=== PATIENT | male | born 1965 | race Caucasian/White ===

== ENCOUNTER 2017-11-02 10:34 | Emergency (ER) | payer SELFPAY ==
[~2017-11-02] VITALS: Ht 177.8 cm; Wt 158.8 kg
[~2017-11-02 10:34] MED LIST: ACETAMINOPHEN500 MG PO; BUPR75; BUPROPION HCL200 MG PO; Cipro500 MG PO; DIBU30TO PR; GABA100; GABA300 PO; HYDACE25S PR; HYDCHL25 PO; IBUP400 PO; KETO10 PO; Mucinex600 MG PO; OMEPRAZOLE MAGN20 MG PO; PRAHYD1AE TOP; PROM25 PO; Percocet 5-3251 EACH PO; Phentermine HCl30 MG PO
[2017-11-02] MEDS ORDERED: ALBU90OI INH (11:18)
== END 2017-11-02 11:40 | disposition home or self-care (01) ==
LOC: ER 10:34
DX: J02.9 Acute pharyngitis, unspecified (principal); R19.7 Diarrhea, unspecified; Z79.899 Other long term (current) drug therapy; Z87.891 Personal history of nicotine dependence
CPT/HCPCS: 99283

== ENCOUNTER 2018-02-07 15:47 | Emergency (ER) | payer OTHER ==
[~2018-02-07] VITALS: Ht 177.8 cm; Wt 154.2 kg
[~2018-02-07 15:47] MED LIST changes: +ALBU90OI INH; +Augmentin 875-1 EACH PO
[2018-02-07 16:26] LABS: BASOPHILS ABSOLUTE AUTO 0.07 K/mm3 (0.00-0.23); BASOPHILS PERCENT AUTO 1 % (0-2); EOSINOPHILS ABSOLUTE AUTO 0.09 K/mm3 (0.00-0.68); EOSINOPHILS PERCENT AUTO 1 % (0-6); Hematocrit 48.9 % (37.0-53.0); Hemoglobin 14.5 g/dL (13.5-17.5); IMMATURE GRAN ABSOLUTE AUTO 0.02 K/mm3 (0.00-0.10); IMMATURE GRAN PERCENT AUTO 0 % (0-1); LYMPHOCYTES ABSOLUTE AUTO 1.99 K/mm3 (0.84-5.20); LYMPHOCYTES PERCENT AUTO 19 % (21-46); MONOCYTES ABSOLUTE AUTO 0.76 K/mm3 (0.16-1.47); MONOCYTES PERCENT AUTO 7 % (4-13); Mean Corpuscular HGB 23.2 pg (26.0-34.0); Mean Corpuscular HGB Conc 29.7 g/dL (31.5-36.5); Mean Corpuscular Volume 78 fL (80-100); Mean Platelet Volume 9.5 fL (9.1-12.4); NEUTROPHILS ABSOLUTE AUTO 7.36 K/mm3 (1.96-9.15); NEUTROPHILS PERCENT AUTO 72 % (41-73); Platelet Count 223 K/mm3 (150-400); RDW Coefficient Variation 18.7 % (11.7-14.2); RDW Standard Deviation 51.7 fL (35.1-46.3); Red Blood Cell Count 6.25 M/mm3 (4.30-5.90); White Blood Cell Count 10.29 K/mm3 (4.00-11.30)
[2018-02-07 16:43] LABS: Alanine Aminotransfer (ALT/SGP 28 U/L (12-78); Albumin, Blood 3.6 g/dL (3.4-5.0); Albumin/Globulin Ratio 0.9 (0.8-1.8); Alk Phos 88 U/L (50-136); Anion Gap 7 mmol/L (6-16); Aspartate Aminotrans (AST/SGOT 20 U/L (12-37); Bilirubin, Total 0.9 mg/dL (0.1-1.0); Blood Urea Nitrogen 12 mg/dL (8-24); Bun/Creatinine Ratio 12.9 (12.0-20.0); CO2, Blood 24 mmol/L (21-32); Calcium, Blood 8.7 mg/dL (8.5-10.1); Chloride, Blood 103 mmol/L (98-108); Creatinine, Blood 0.93 mg/dL (0.60-1.20); Globulin, Blood 4.1 g/dL (2.2-4.0); Glomerular Filtration Rate >60 (60-); Glucose, Blood 95 mg/dL (70-99); Potassium, Blood 3.8 mmol/L (3.5-5.5); Sodium, Blood 134 mmol/L (136-145); Total Protein, Blood 7.7 g/dL (6.4-8.2)
[2018-02-07 18:17] LABS: Source, Urine Clean Catch
[2018-02-07 18:29] LABS: Appearance, Urine Clear (Clear); Bilirubin, Urine Neg (Neg); Blood, Urine Neg (Neg); Color, Urine Yellow (P-Yellow); Glucose Qualitative, Urine Neg (Neg); Ketones, Urine 1+ (Neg); Leukocyte Esterase, Urine Neg (Neg); Nitrite, Urine Neg (Neg); Protein, Urine 3+ (Neg); Urobilinogen, Urine NORM (Normal)
[2018-02-07 19:00] LABS: Bacteria Not Seen /hpf; Mucus Light (0-Heavy); Red Blood Cells, Urine Not Seen /hpf (0-2); Squamous Epithelial Cells Few /hpf (Few)
== END 2018-02-07 19:22 | disposition home or self-care (01) ==
LOC: ER 15:47
PROVIDERS: Physician Assistant
DX: R10.31 Right lower quadrant pain (principal); I10 Essential (primary) hypertension; Z79.899 Other long term (current) drug therapy; Z87.442 Personal history of urinary calculi; Z87.891 Personal history of nicotine dependence
CPT/HCPCS: 36415; 74176; 80053; 81001; 85025; 96374; 96375; 99284-25; J1885; J3010

== ENCOUNTER 2018-04-05 16:23 | Emergency (ER) | payer OTHER, SELFPAY ==
[~2018-04-05] VITALS: Ht 177.8 cm; Wt 154.2 kg
[2018-04-05 17:02] LABS: BASOPHILS ABSOLUTE AUTO 0.07 K/mm3 (0.00-0.23); BASOPHILS PERCENT AUTO 1 % (0-2); EOSINOPHILS PERCENT AUTO 1 % (0-6); Hematocrit 46.9 % (37.0-53.0); Hemoglobin 14.1 g/dL (13.5-17.5); IMMATURE GRAN ABSOLUTE AUTO 0.03 K/mm3 (0.00-0.10); IMMATURE GRAN PERCENT AUTO 0 % (0-1); LYMPHOCYTES ABSOLUTE AUTO 1.33 K/mm3 (0.84-5.20); LYMPHOCYTES PERCENT AUTO 15 % (21-46); MONOCYTES ABSOLUTE AUTO 0.55 K/mm3 (0.16-1.47); MONOCYTES PERCENT AUTO 6 % (4-13); Mean Corpuscular HGB 22.7 pg (26.0-34.0); Mean Corpuscular HGB Conc 30.1 g/dL (31.5-36.5); Mean Corpuscular Volume 75 fL (80-100); Mean Platelet Volume 10.3 fL (9.1-12.4); NEUTROPHILS PERCENT AUTO 76 % (41-73); Platelet Count 286 K/mm3 (150-400); RDW Coefficient Variation 17.1 % (11.7-14.2); RDW Standard Deviation 42.9 fL (35.1-46.3); Red Blood Cell Count 6.22 M/mm3 (4.30-5.90); White Blood Cell Count 8.78 K/mm3 (4.00-11.30)
[2018-04-05 17:12] LABS: Alanine Aminotransfer (ALT/SGP 34 U/L (12-78); Albumin, Blood 3.6 g/dL (3.4-5.0); Albumin/Globulin Ratio 0.8 (0.8-1.8); Alk Phos 94 U/L (50-136); Anion Gap 5 mmol/L (6-16); Aspartate Aminotrans (AST/SGOT 38 U/L (12-37); Bilirubin, Total 0.8 mg/dL (0.1-1.0); Blood Urea Nitrogen 9 mg/dL (8-24); Bun/Creatinine Ratio 10.1 (12.0-20.0); CO2, Blood 28 mmol/L (21-32); Calcium, Blood 8.5 mg/dL (8.5-10.1); Chloride, Blood 101 mmol/L (98-108); Creatinine, Blood 0.89 mg/dL (0.60-1.20); Globulin, Blood 4.6 g/dL (2.2-4.0); Glomerular Filtration Rate >60 (60-); Glucose, Blood 135 mg/dL (70-99); Potassium, Blood 4.3 mmol/L (3.5-5.5); Sodium, Blood 134 mmol/L (136-145); Total Protein, Blood 8.2 g/dL (6.4-8.2); Troponin I <0.015 ng/mL (0.000-0.040)
[2018-04-05] MEDS ORDERED: LOMAIRA8 MG (18:20)
[2018-04-05] MEDS ORDERED: IRON150C (18:20)
== END 2018-04-05 18:30 | disposition home or self-care (01) ==
LOC: ER 16:23
PROVIDERS: Emergency Medicine
DX: R53.1 Weakness (principal); E66.9 Obesity, unspecified; I10 Essential (primary) hypertension; Z87.891 Personal history of nicotine dependence
CPT/HCPCS: 36415; 71046; 80053; 83880; 84484; 85025; 93005; 93010; 99284-25

== ENCOUNTER → 2018-10-22 | Outpatient (CLI) | payer SELFPAY ==
[~2018-10-22] MED LIST changes: +IRON150C; +LOMAIRA8 MG
[2018-10-22 16:24] LABS: BASOPHILS ABSOLUTE AUTO 0.07 K/mm3 (0.00-0.23); BASOPHILS PERCENT AUTO 1 % (0-2); EOSINOPHILS ABSOLUTE AUTO 0.13 K/mm3 (0.00-0.68); EOSINOPHILS PERCENT AUTO 1 % (0-6); Hematocrit 46.8 % (37.0-53.0); Hemoglobin 14.6 g/dL (13.5-17.5); IMMATURE GRAN ABSOLUTE AUTO 0.02 K/mm3 (0.00-0.10); IMMATURE GRAN PERCENT AUTO 0 % (0-1); LYMPHOCYTES ABSOLUTE AUTO 1.46 K/mm3 (0.84-5.20); LYMPHOCYTES PERCENT AUTO 15 % (21-46); MONOCYTES ABSOLUTE AUTO 0.65 K/mm3 (0.16-1.47); MONOCYTES PERCENT AUTO 7 % (4-13); Mean Corpuscular HGB Conc 31.2 g/dL (31.5-36.5); Mean Corpuscular Volume 77 fL (80-100); Mean Platelet Volume 9.7 fL (9.1-12.4); NEUTROPHILS ABSOLUTE AUTO 7.67 K/mm3 (1.96-9.15); NEUTROPHILS PERCENT AUTO 77 % (41-73); Platelet Count 225 K/mm3 (150-400); RDW Coefficient Variation 18.2 % (11.7-14.2); RDW Standard Deviation 46.5 fL (35.1-46.3); Red Blood Cell Count 6.09 M/mm3 (4.30-5.90)
[2018-10-22 16:42] LABS: Alanine Aminotransfer (ALT/SGP 24 U/L (12-78); Albumin, Blood 3.3 g/dL (3.4-5.0); Albumin/Globulin Ratio 0.8 (0.8-1.8); Alk Phos 97 U/L (40-126); Anion Gap 8 mmol/L (6-16); Aspartate Aminotrans (AST/SGOT 24 U/L (12-37); Bilirubin, Total 0.5 mg/dL (0.1-1.0); Blood Urea Nitrogen 11 mg/dL (8-24); Bun/Creatinine Ratio 10.5 (12.0-20.0); CO2, Blood 27 mmol/L (21-32); Calcium, Blood 8.8 mg/dL (8.5-10.1); Chloride, Blood 104 mmol/L (98-108); Creatinine, Blood 1.05 mg/dL (0.60-1.20); Globulin, Blood 4.1 g/dL (2.2-4.0); Glomerular Filtration Rate >60 (60-); Glucose, Blood 146 mg/dL (70-99); Sodium, Blood 139 mmol/L (136-145); Thyroid Stimulating Hormone 2.104 uIU/mL (0.360-4.800); Total Protein, Blood 7.4 g/dL (6.4-8.2)
[2018-10-22 16:44] LABS: Troponin I <0.017 ng/mL (0.000-0.040)
== END | disposition home or self-care (01) ==
LOC: LAB EV 16:18 → LAB SHORT 16:18
PROVIDERS: Physician Assistant
DX: R00.0 Tachycardia, unspecified (principal); R53.83 Other fatigue
CPT/HCPCS: 80053; 84443; 84484; 85025

== ENCOUNTER 2019-03-23 18:56 | Emergency (ER) | payer OTHER ==
[~2019-03-23] VITALS: Ht 177.8 cm; Wt 156.5 kg
[2019-03-23 20:05] LABS: BASOPHILS ABSOLUTE AUTO 0.04 K/mm3 (0.00-0.23); BASOPHILS PERCENT AUTO 1 % (0-2); EOSINOPHILS ABSOLUTE AUTO 0.11 K/mm3 (0.00-0.68); EOSINOPHILS PERCENT AUTO 2 % (0-6); Hematocrit 49.6 % (37.0-53.0); Hemoglobin 14.8 g/dL (13.5-17.5); IMMATURE GRAN ABSOLUTE AUTO 0.01 K/mm3 (0.00-0.10); IMMATURE GRAN PERCENT AUTO 0 % (0-1); LYMPHOCYTES ABSOLUTE AUTO 0.55 K/mm3 (0.84-5.20); LYMPHOCYTES PERCENT AUTO 7 % (21-46); MONOCYTES ABSOLUTE AUTO 0.88 K/mm3 (0.16-1.47); MONOCYTES PERCENT AUTO 12 % (4-13); Mean Corpuscular HGB 23.3 pg (26.0-34.0); Mean Corpuscular HGB Conc 29.8 g/dL (31.5-36.5); Mean Corpuscular Volume 78 fL (80-100); Mean Platelet Volume 9.5 fL (9.1-12.4); NEUTROPHILS ABSOLUTE AUTO 5.92 K/mm3 (1.96-9.15); NEUTROPHILS PERCENT AUTO 79 % (41-73); Platelet Count 190 K/mm3 (150-400); RDW Coefficient Variation 17.3 % (11.7-14.2); RDW Standard Deviation 46.6 fL (35.1-46.3); Red Blood Cell Count 6.35 M/mm3 (4.30-5.90); White Blood Cell Count 7.51 K/mm3 (4.00-11.30)
[2019-03-23 20:08] LABS: Influenza A Positive (NEGATIVE); Influenza B Negative (NEGATIVE)
[2019-03-23 20:36] LABS: Alanine Aminotransfer (ALT/SGP 26 U/L (12-78); Albumin, Blood 3.6 g/dL (3.4-5.0); Albumin/Globulin Ratio 0.9 (0.8-1.8); Alk Phos 87 U/L (50-136); Anion Gap 5 mmol/L (6-16); Aspartate Aminotrans (AST/SGOT 20 U/L (12-37); Bilirubin, Total 1.2 mg/dL (0.1-1.0); Blood Urea Nitrogen 15 mg/dL (8-24); Bun/Creatinine Ratio 15.9 (12.0-20.0); CO2, Blood 29 mmol/L (21-32); Calcium, Blood 8.9 mg/dL (8.5-10.1); Chloride, Blood 106 mmol/L (98-108); Creatinine, Blood 0.94 mg/dL (0.60-1.20); Glomerular Filtration Rate >60 (60-); Glucose, Blood 81 mg/dL (70-99); Potassium, Blood 3.9 mmol/L (3.5-5.5); Sodium, Blood 140 mmol/L (136-145); Total Protein, Blood 7.6 g/dL (6.4-8.2); Troponin I <0.015 ng/mL (0.000-0.040)
[2019-03-23] MEDS ORDERED: Zofran4 MG PO (21:37)
[2019-03-23] MEDS ORDERED: Tamiflu75 MG PO (21:37)
== END 2019-03-23 21:50 | disposition home or self-care (01) ==
LOC: ER 18:56
PROVIDERS: Physician Assistant
DX: J10.1 Influenza due to other identified influenza virus with other respiratory manifestations (principal); Z79.899 Other long term (current) drug therapy; Z87.891 Personal history of nicotine dependence
CPT/HCPCS: 36415; 71046; 80053; 84484; 85025; 87804; 93005; 93010; 96374; 96375; 99284-25; J1100; J1885; J2405

== ENCOUNTER 2019-04-05 03:11 | Emergency (ER) | payer OTHER ==
[~2019-04-05] VITALS: Ht 177.8 cm; Wt 154.2 kg
[~2019-04-05 03:11] MED LIST changes: +Tamiflu75 MG PO; +Zofran4 MG PO
[2019-04-05 03:41] LABS: Source, Urine Clean Catch
[2019-04-05 03:43] LABS: BASOPHILS ABSOLUTE AUTO 0.06 K/mm3 (0.00-0.23); BASOPHILS PERCENT AUTO 1 % (0-2); EOSINOPHILS ABSOLUTE AUTO 0.15 K/mm3 (0.00-0.68); EOSINOPHILS PERCENT AUTO 2 % (0-6); Hematocrit 47.5 % (37.0-53.0); Hemoglobin 14.2 g/dL (13.5-17.5); IMMATURE GRAN ABSOLUTE AUTO 0.02 K/mm3 (0.00-0.10); IMMATURE GRAN PERCENT AUTO 0 % (0-1); LYMPHOCYTES PERCENT AUTO 19 % (21-46); MONOCYTES ABSOLUTE AUTO 1.06 K/mm3 (0.16-1.47); MONOCYTES PERCENT AUTO 11 % (4-13); Mean Corpuscular HGB 23.2 pg (26.0-34.0); Mean Corpuscular HGB Conc 29.9 g/dL (31.5-36.5); Mean Corpuscular Volume 78 fL (80-100); Mean Platelet Volume 9.8 fL (9.1-12.4); NEUTROPHILS ABSOLUTE AUTO 6.56 K/mm3 (1.96-9.15); NEUTROPHILS PERCENT AUTO 68 % (41-73); Platelet Count 230 K/mm3 (150-400); RDW Coefficient Variation 17.7 % (11.7-14.2); RDW Standard Deviation 47.3 fL (35.1-46.3); Red Blood Cell Count 6.12 M/mm3 (4.30-5.90); White Blood Cell Count 9.65 K/mm3 (4.00-11.30)
[2019-04-05 03:47] LABS: Bilirubin, Urine Neg (Neg); Blood, Urine 5+ (Neg); Glucose Qualitative, Urine Neg (Neg); Ketones, Urine Neg (Neg); Leukocyte Esterase, Urine Neg (Neg); Nitrite, Urine Neg (Neg); Protein, Urine 2+ (Neg); Urobilinogen, Urine NORM (Normal)
[2019-04-05 03:52] LABS: Appearance, Urine Clear (Clear); Color, Urine Yellow (P-Yellow); Red Blood Cells, Urine 50-100 /hpf (0-2); Squamous Epithelial Cells Rare /hpf (Few); White Blood Cells, Urine Rare /hpf (0-5)
[2019-04-05 03:53] LABS: Bacteria Not Seen /hpf
[2019-04-05 04:01] LABS: Alanine Aminotransfer (ALT/SGP 29 U/L (12-78); Albumin, Blood 3.2 g/dL (3.4-5.0); Albumin/Globulin Ratio 0.8 (0.8-1.8); Alk Phos 91 U/L (50-136); Anion Gap 7 mmol/L (6-16); Aspartate Aminotrans (AST/SGOT 20 U/L (12-37); Bilirubin, Total 0.9 mg/dL (0.1-1.0); Blood Urea Nitrogen 18 mg/dL (8-24); Bun/Creatinine Ratio 18.3 (12.0-20.0); CO2, Blood 26 mmol/L (21-32); Calcium, Blood 8.7 mg/dL (8.5-10.1); Chloride, Blood 107 mmol/L (98-108); Creatinine, Blood 0.98 mg/dL (0.60-1.20); Glomerular Filtration Rate >60 (60-); Glucose, Blood 189 mg/dL (70-99); Potassium, Blood 3.9 mmol/L (3.5-5.5); Sodium, Blood 140 mmol/L (136-145); Total Protein, Blood 7.2 g/dL (6.4-8.2)
[2019-04-05] MEDS ORDERED: Zofran4 MG PO (05:47)
[2019-04-05] MEDS ORDERED: Flomax0.4 MG PO (05:47)
[2019-04-05] MEDS ORDERED: Percocet 5-3251 EACH PO (05:47)
== END 2019-04-05 06:10 | disposition home or self-care (01) ==
LOC: ER 03:11
PROVIDERS: Emergency Medicine
DX: N20.0 Calculus of kidney (principal); I10 Essential (primary) hypertension; I25.10 Atherosclerotic heart disease of native coronary artery without angina pectoris; G47.33 Obstructive sleep apnea (adult) (pediatric); Z79.899 Other long term (current) drug therapy; Z87.891 Personal history of nicotine dependence
CPT/HCPCS: 36415; 80053; 81001; 85025; 96361; 96374; 96375; 99284-25; J1170; J1885; J2405; J7030

== ENCOUNTER 2019-11-20 11:07 | Emergency (ER) | payer OTHER | END 2019-11-20 16:17 | disposition home or self-care (01) | LOC: ER 11:07 | DX: N20.0 Calculus of kidney (principal); Z79.899 Other long term (current) drug therapy; Z87.891 Personal history of nicotine dependence ==

== ENCOUNTER 2019-11-22 05:56 | Emergency (ER) | payer OTHER ==
[~2019-11-22] VITALS: Ht 177.8 cm; Wt 158.8 kg
[~2019-11-22 05:56] MED LIST changes: +CEFP200 PO; +Flomax0.4 MG PO; +IBUP800 PO; +NORCO 7.5-3251 EAC1 PO; +Norco 5-325 Ta1 EACH PO; +ONDA4ODT MM; +Robaxin-750750 MG PO
[2019-11-22 06:46] LABS: Source, Urine Voided
[2019-11-22 06:50] LABS: Bilirubin, Urine Neg (Neg); Blood, Urine 3+ (Neg); Glucose Qualitative, Urine Neg (Neg); Ketones, Urine Neg (Neg); Leukocyte Esterase, Urine Neg (Neg); Nitrite, Urine Neg (Neg); Protein, Urine 3+ (Neg); Urobilinogen, Urine NORM (Normal)
[2019-11-22 06:55] LABS: Appearance, Urine Clear (Clear); Color, Urine Yellow (P-Yellow)
[2019-11-22 06:56] LABS: Bacteria Few /hpf; Squamous Epithelial Cells Few /hpf (Few)
[2019-11-22 06:57] LABS: Mucus Light (0-Heavy)
[2019-11-22 07:25] LABS: BASOPHILS ABSOLUTE AUTO 0.06 K/mm3 (0.00-0.23); BASOPHILS PERCENT AUTO 1 % (0-2); EOSINOPHILS ABSOLUTE AUTO 0.24 K/mm3 (0.00-0.68); EOSINOPHILS PERCENT AUTO 2 % (0-6); Hematocrit 47.6 % (37.0-53.0); Hemoglobin 14.1 g/dL (13.5-17.5); IMMATURE GRAN ABSOLUTE AUTO 0.03 K/mm3 (0.00-0.10); IMMATURE GRAN PERCENT AUTO 0 % (0-1); LYMPHOCYTES ABSOLUTE AUTO 1.84 K/mm3 (0.84-5.20); LYMPHOCYTES PERCENT AUTO 18 % (21-46); MONOCYTES ABSOLUTE AUTO 0.95 K/mm3 (0.16-1.47); MONOCYTES PERCENT AUTO 9 % (4-13); Mean Corpuscular HGB 22.8 pg (26.0-34.0); Mean Corpuscular HGB Conc 29.6 g/dL (31.5-36.5); Mean Corpuscular Volume 77 fL (80-100); Mean Platelet Volume 10.1 fL (9.1-12.4); NEUTROPHILS ABSOLUTE AUTO 7.16 K/mm3 (1.96-9.15); NEUTROPHILS PERCENT AUTO 70 % (41-73); Platelet Count 223 K/mm3 (150-400); RDW Coefficient Variation 19.3 % (11.7-14.2); Red Blood Cell Count 6.18 M/mm3 (4.30-5.90); White Blood Cell Count 10.28 K/mm3 (4.00-11.30)
[2019-11-22 07:34] LABS: Anion Gap 5 mmol/L (6-16); Blood Urea Nitrogen 19 mg/dL (8-24); Bun/Creatinine Ratio 23.7 (12.0-20.0); CO2, Blood 27 mmol/L (21-32); Calcium, Blood 8.6 mg/dL (8.5-10.1); Chloride, Blood 110 mmol/L (98-108); Glomerular Filtration Rate >60 (60-); Glucose, Blood 153 mg/dL (70-99); Potassium, Blood 4.1 mmol/L (3.5-5.5); Sodium, Blood 142 mmol/L (136-145)
[2019-11-23] MEDS ORDERED: PROM25 PO (15:05)
[2019-11-23] MEDS ORDERED: Percocet 5-3251 EACH PO (15:05)
[2019-11-23] MEDS ORDERED: IBUP800 PO (15:05)
== END 2019-11-22 08:21 | disposition home or self-care (01) ==
LOC: ER 05:56
PROVIDERS: Emergency Medicine
DX: N13.2 Hydronephrosis with renal and ureteral calculous obstruction (principal); I25.10 Atherosclerotic heart disease of native coronary artery without angina pectoris; I10 Essential (primary) hypertension; E66.9 Obesity, unspecified; Z68.43 Body mass index [BMI] 50.0-59.9, adult; Z95.5 Presence of coronary angioplasty implant and graft; Z87.891 Personal history of nicotine dependence; Z79.899 Other long term (current) drug therapy
CPT/HCPCS: 36415; 74176; 80048; 81001; 85025; 96361; 96374; 96375; 99284-25; J1170; J1885; J2405; J7030

== ENCOUNTER 2019-11-23 13:23 | Emergency (ER) | payer OTHER ==
[~2019-11-23] VITALS: Ht 177.8 cm; Wt 113.4 kg
[2019-11-23 14:09] LABS: Source, Urine Voided
[2019-11-23 14:12] LABS: Bilirubin, Urine Neg (Neg); Blood, Urine 2+ (Neg); Color, Urine Yellow (P-Yellow); Glucose Qualitative, Urine Neg (Neg); Ketones, Urine Neg (Neg); Leukocyte Esterase, Urine Neg (Neg); Nitrite, Urine Neg (Neg); Protein, Urine 1+ (Neg); Urobilinogen, Urine 1+ (Normal)
[2019-11-23 14:30] LABS: BASOPHILS ABSOLUTE AUTO 0.06 K/mm3 (0.00-0.23); BASOPHILS PERCENT AUTO 1 % (0-2); EOSINOPHILS ABSOLUTE AUTO 0.19 K/mm3 (0.00-0.68); EOSINOPHILS PERCENT AUTO 2 % (0-6); Hematocrit 45.2 % (37.0-53.0); Hemoglobin 13.4 g/dL (13.5-17.5); IMMATURE GRAN ABSOLUTE AUTO 0.02 K/mm3 (0.00-0.10); IMMATURE GRAN PERCENT AUTO 0 % (0-1); LYMPHOCYTES ABSOLUTE AUTO 1.28 K/mm3 (0.84-5.20); LYMPHOCYTES PERCENT AUTO 12 % (21-46); MONOCYTES ABSOLUTE AUTO 0.82 K/mm3 (0.16-1.47); MONOCYTES PERCENT AUTO 7 % (4-13); Mean Corpuscular HGB 22.9 pg (26.0-34.0); Mean Corpuscular HGB Conc 29.6 g/dL (31.5-36.5); Mean Corpuscular Volume 77 fL (80-100); Mean Platelet Volume 10.2 fL (9.1-12.4); NEUTROPHILS ABSOLUTE AUTO 8.64 K/mm3 (1.96-9.15); NEUTROPHILS PERCENT AUTO 79 % (41-73); Platelet Count 225 K/mm3 (150-400); RDW Coefficient Variation 18.7 % (11.7-14.2); RDW Standard Deviation 50.3 fL (35.1-46.3); Red Blood Cell Count 5.84 M/mm3 (4.30-5.90); White Blood Cell Count 11.01 K/mm3 (4.00-11.30)
[2019-11-23 14:31] LABS: Alanine Aminotransfer (ALT/SGP 28 U/L (12-78); Albumin, Blood 3.2 g/dL (3.4-5.0); Albumin/Globulin Ratio 0.8 (0.8-1.8); Alk Phos 77 U/L (50-136); Anion Gap 5 mmol/L (6-16); Aspartate Aminotrans (AST/SGOT 19 U/L (12-37); Bilirubin, Total 0.7 mg/dL (0.1-1.0); Blood Urea Nitrogen 15 mg/dL (8-24); Bun/Creatinine Ratio 15.3 (12.0-20.0); CO2, Blood 28 mmol/L (21-32); Calcium, Blood 8.9 mg/dL (8.5-10.1); Chloride, Blood 109 mmol/L (98-108); Creatinine, Blood 0.98 mg/dL (0.60-1.20); Globulin, Blood 3.9 g/dL (2.2-4.0); Glomerular Filtration Rate >60 (60-); Glucose, Blood 124 mg/dL (70-99); Potassium, Blood 4.1 mmol/L (3.5-5.5); Sodium, Blood 142 mmol/L (136-145); Total Protein, Blood 7.1 g/dL (6.4-8.2)
[2019-11-23 14:33] LABS: Appearance, Urine Hazy (Clear)
[2019-11-23 14:35] LABS: Bacteria Few /hpf; Squamous Epithelial Cells Mod /hpf (Few)
[2019-11-23] MEDS ORDERED: PROM25 PO (15:05)
[2019-11-23] MEDS ORDERED: IBUP800 PO (15:05)
[2019-11-23] MEDS ORDERED: Percocet 5-3251 EACH PO (15:05)
== END 2019-11-23 15:13 | disposition home or self-care (01) ==
LOC: ER 13:23
PROVIDERS: Emergency Medicine
DX: N20.0 Calculus of kidney (principal); I10 Essential (primary) hypertension; E66.9 Obesity, unspecified; Z79.899 Other long term (current) drug therapy; Z87.891 Personal history of nicotine dependence
CPT/HCPCS: 36415; 80053; 81001; 85025; 96374; 96375; 99284-25; J1170; J1885; J2550

== ENCOUNTER 2019-12-17 06:02 | Emergency (ER) | payer OTHER ==
[~2019-12-17] VITALS: Ht 180.3 cm; Wt 158.3 kg
[2019-12-17 06:15] LABS: Source, Urine Clean Catch
[2019-12-17 06:17] LABS: Appearance, Urine Clear (Clear); Bilirubin, Urine Neg (Neg); Blood, Urine 1+ (Neg); Color, Urine Yellow (P-Yellow); Glucose Qualitative, Urine Neg (Neg); Ketones, Urine Neg (Neg); Leukocyte Esterase, Urine Neg (Neg); Nitrite, Urine Neg (Neg); Protein, Urine 3+ (Neg); Urobilinogen, Urine NORM (Normal)
[2019-12-17] MEDS ORDERED: GABA300 PO (06:18)
[2019-12-17] MEDS ORDERED: AMPDEX5 PO (06:19)
[2019-12-17 06:27] LABS: Bacteria Few /hpf; Squamous Epithelial Cells Few /hpf (Few); White Blood Cells, Urine 0-2 /hpf (0-5)
[2019-12-17] MEDS ORDERED: PROM25 PO (11:42)
[2019-12-17] MEDS ORDERED: OXYC5 PO (11:42)
[2019-12-17] MEDS ORDERED: TAMS.4ER PO (11:42)
== END 2019-12-17 12:21 | disposition home or self-care (01) ==
LOC: ER 06:02
PROVIDERS: Emergency Medicine
DX: N20.1 Calculus of ureter (principal); Z87.442 Personal history of urinary calculi; Z87.891 Personal history of nicotine dependence; Z20.828 Contact with and (suspected) exposure to other viral communicable diseases; Z79.899 Other long term (current) drug therapy
CPT/HCPCS: 36415; 72192; 74018; 76770; 81001; 96374; 96375; 99284-25; J1170; J1885; J2405; U0004

== ENCOUNTER 2020-01-01 10:30 | Emergency (ER) | payer OTHER ==
[~2020-01-01] VITALS: Ht 177.8 cm; Wt 163.3 kg
[~2020-01-01 10:30] MED LIST changes: +AMPDEX5 PO; +OXYC5 PO; +TAMS.4ER PO
[2020-01-01] MEDS ORDERED: Norco 5-325 Ta1 EACH PO (14:03)
[2020-01-01] MEDS ORDERED: CYCL10 PO (14:03)
== END 2020-01-01 14:17 | disposition home or self-care (01) ==
LOC: ER 10:30
DX: M54.2 Cervicalgia (principal); M54.5 Low back pain; M25.531 Pain in right wrist; I10 Essential (primary) hypertension; I25.10 Atherosclerotic heart disease of native coronary artery without angina pectoris; E66.9 Obesity, unspecified; Z87.891 Personal history of nicotine dependence; Z87.442 Personal history of urinary calculi; Z79.899 Other long term (current) drug therapy; V43.92XA Unspecified car occupant injured in collision with other type car in traffic accident, initial encounter; Y92.410 Unspecified street and highway as the place of occurrence of the external cause
CPT/HCPCS: 72070; 72125; 73110; 99284-25; A9270-GY

== ENCOUNTER 2020-01-08 07:12 | Emergency (ER) | payer OTHER ==
[~2020-01-08] VITALS: Ht 177.8 cm; Wt 158.3 kg
[~2020-01-08 07:12] MED LIST changes: +CYCL10 PO
[2020-01-08] MEDS ORDERED: TIZA4 PO (08:42)
[2020-01-08] MEDS ORDERED: Percocet 5-3251 EACH PO (08:42)
== END 2020-01-08 08:47 | disposition home or self-care (01) ==
LOC: ER 07:12
DX: M54.5 Low back pain (principal); I25.10 Atherosclerotic heart disease of native coronary artery without angina pectoris; I10 Essential (primary) hypertension; E66.9 Obesity, unspecified; Z79.899 Other long term (current) drug therapy; Z87.442 Personal history of urinary calculi; Z87.891 Personal history of nicotine dependence; Z95.5 Presence of coronary angioplasty implant and graft; V89.2XXA Person injured in unspecified motor-vehicle accident, traffic, initial encounter; Y92.410 Unspecified street and highway as the place of occurrence of the external cause
CPT/HCPCS: 99283; A9270

== ENCOUNTER 2020-02-02 16:29 | Emergency (ER) | payer OTHER ==
[~2020-02-02] VITALS: Ht 177.8 cm; Wt 109.8 kg
[~2020-02-02 16:29] MED LIST changes: +TIZA4 PO
[2020-02-02] MEDS ORDERED: GLYDO11 ML TOP (19:12)
[2020-02-02] MEDS ORDERED: COLACE100 MG PO (19:12)
[2020-02-02] MEDS ORDERED: HYDCOR2.5C PR (19:12)
== END 2020-02-02 19:50 | disposition home or self-care (01) ==
LOC: ER 16:29
DX: K64.4 Residual hemorrhoidal skin tags (principal); Z79.899 Other long term (current) drug therapy
CPT/HCPCS: 74018; 99283-25

== ENCOUNTER 2021-08-08 08:45 | Emergency (ER) | payer OTHER ==
[~2021-08-08] VITALS: Ht 180.3 cm; Wt 158.8 kg
[~2021-08-08 08:45] MED LIST changes: +COLACE100 MG PO; +FERSU300 PO; +FINA5 PO; +GLYDO11 ML TOP; +HYDACE10B PO; +HYDCOR2.5C PR; +HYDR25SUP PR; +ONDA4 PO; +TAMSULOSIN HCL0.4 M1 PO
[2021-08-08] MEDS ORDERED: FINA5 PO (10:50)
[2021-08-08] MEDS ORDERED: GABA300 PO (10:51)
[2021-08-08] MEDS ORDERED: NEURONTIN300 MG PO (10:51)
[2021-08-08] MEDS ORDERED: ZESTRIL40 M1 PO (10:53)
[2021-08-08] MEDS ORDERED: Voltaren100 GM TOP (11:46)
[2021-08-08] MEDS ORDERED: Norco 5-325 Ta1 EACH PO (11:46)
== END 2021-08-08 11:59 | disposition home or self-care (01) ==
LOC: ER 08:45
DX: M25.562 Pain in left knee (principal); I10 Essential (primary) hypertension; I25.10 Atherosclerotic heart disease of native coronary artery without angina pectoris; E66.9 Obesity, unspecified; Z68.42 Body mass index [BMI] 45.0-49.9, adult; Z79.899 Other long term (current) drug therapy; Z87.891 Personal history of nicotine dependence
CPT/HCPCS: 73564; A9270; J1885

== ENCOUNTER 2021-08-18 15:30 | Emergency (ER) | payer OTHER ==
[~2021-08-18] VITALS: Ht 177.8 cm; Wt 113.4 kg
[~2021-08-18 15:30] MED LIST changes: +NEURONTIN300 MG PO; +Voltaren100 GM TOP; +ZESTRIL40 M1 PO
[2021-08-18] MEDS ORDERED: Naprosyn500 MG PO (16:34)
== END 2021-08-18 16:46 | disposition home or self-care (01) ==
LOC: ER 15:30
DX: S83.92XA Sprain of unspecified site of left knee, initial encounter (principal); I10 Essential (primary) hypertension; G47.33 Obstructive sleep apnea (adult) (pediatric); Z87.891 Personal history of nicotine dependence; Z79.899 Other long term (current) drug therapy; Z95.5 Presence of coronary angioplasty implant and graft; X58.XXXA Exposure to other specified factors, initial encounter; Y92.9 Unspecified place or not applicable
CPT/HCPCS: 96372; 99283-25; J1885

== ENCOUNTER 2021-10-25 07:37 | Day surgery (SDC) | payer OTHER ==
[~2021-10-25] VITALS: Ht 177.8 cm; Wt 148.3 kg
[~2021-10-25 07:37] MED LIST changes: +Naprosyn500 MG PO
[2021-10-25] MEDS ORDERED: MELO7.5 (08:18)
[2021-10-25] MEDS ORDERED: AMLO5 PO (08:18)
[2021-10-25] MEDS ORDERED: ATOR40TA PO (08:18)
[2021-10-25] MEDS ORDERED: Adipex-P37.5 MG PO (08:19)
[2021-10-25] MEDS ORDERED: METF500 PO (08:19)
[2021-10-25] MEDS ORDERED: TIZA4 PO (08:19)
[2021-10-25] MEDS ORDERED: TAMS.4ER PO (08:19)
--- NOTE | 2021-10-25 08:45 | NUR ---
10/25/21 0845 Rodrigo Cole CALL LIGHT WITHIN REACH.
--- NOTE | 2021-10-25 09:20 | NUR ---
10/25/21 09 Tawnya Lidn 1 MG EPI ADDED TO EACH OF THE FIRST 3 BAGS OF LR PER ORDER FOR IRRIGATION AT [facility].
--- NOTE | 2021-10-25 10:19 | NUR ---
10/25/21 1019 ELZBIETA SARABIA RN BRODIE HANDOFF TO JADON WILL , 50MCG FENTANYL MEDICATION HANDOFF TO JADON WILL
== END 2021-10-25 11:37 | disposition home or self-care (01) ==
LOC: ORSCSDS 07:37
PROVIDERS: Orthopaedic Surgery
PROC: 0SBD4ZZ Excision of Left Knee Joint, Percutaneous Endoscopic Approach (ICD-10-PCS; principal; 2021-10-25 08:45)
DX: S83.242A Other tear of medial meniscus, current injury, left knee, initial encounter (principal); M65.9 Synovitis and tenosynovitis, unspecified; M94.262 Chondromalacia, left knee; I10 Essential (primary) hypertension; G47.33 Obstructive sleep apnea (adult) (pediatric); E11.9 Type 2 diabetes mellitus without complications; E66.01 Morbid (severe) obesity due to excess calories; Z68.42 Body mass index [BMI] 45.0-49.9, adult; Z79.84 Long term (current) use of oral hypoglycemic drugs; Z79.899 Other long term (current) drug therapy
CPT/HCPCS: 82947; A9270; J0171; J0690; J2250; J2704; J2765; J2795; J3010; J7120

== ENCOUNTER 2021-12-29 00:46 | Emergency (ER) | payer OTHER ==
[~2021-12-29] VITALS: Ht 177.8 cm; Wt 151.1 kg
[~2021-12-29 00:46] MED LIST changes: +AMLO5 PO; +ATOR40TA PO; +Adipex-P37.5 MG PO; +MELO7.5; +METF500 PO
[2021-12-29 01:38] LABS: Albumin, Blood 3.3 g/dL (3.4-5.0); Albumin/Globulin Ratio 0.9 (0.8-1.8); Bilirubin, Total 0.6 mg/dL (0.1-1.0); Bun/Creatinine Ratio 22.5 (12.0-20.0); Creatinine, Blood 0.84 mg/dL (0.60-1.20); Globulin, Blood 3.7 g/dL (2.2-4.0); Potassium, Blood 4.1 mmol/L (3.5-5.5)
[2021-12-29 01:39] LABS: BASOPHILS ABSOLUTE AUTO 0.06 K/mm3 (0.00-0.23); BASOPHILS PERCENT AUTO 1 % (0-2); EOSINOPHILS ABSOLUTE AUTO 0.18 K/mm3 (0.00-0.68); EOSINOPHILS PERCENT AUTO 2 % (0-6); Hematocrit 49.4 % (37.0-53.0); Hemoglobin 15.6 g/dL (13.5-17.5); IMMATURE GRAN ABSOLUTE AUTO 0.03 K/mm3 (0.00-0.10); IMMATURE GRAN PERCENT AUTO 0 % (0-1); LYMPHOCYTES ABSOLUTE AUTO 1.66 K/mm3 (0.84-5.20); LYMPHOCYTES PERCENT AUTO 21 % (21-46); MONOCYTES ABSOLUTE AUTO 0.76 K/mm3 (0.16-1.47); MONOCYTES PERCENT AUTO 10 % (4-13); Mean Corpuscular HGB 25.2 pg (26.0-34.0); Mean Corpuscular HGB Conc 31.6 g/dL (31.5-36.5); Mean Corpuscular Volume 80 fL (80-100); Mean Platelet Volume 9.6 fL (9.1-12.4); NEUTROPHILS ABSOLUTE AUTO 5.33 K/mm3 (1.96-9.15); NEUTROPHILS PERCENT AUTO 67 % (41-73); Platelet Count 202 K/mm3 (150-400); RDW Coefficient Variation 15.5 % (11.7-14.2); RDW Standard Deviation 43.8 fL (35.1-46.3); White Blood Cell Count 8.02 K/mm3 (4.00-11.30)
[2021-12-29 02:30] LABS: Source, Urine Clean Catch
[2021-12-29 02:37] LABS: Bilirubin, Urine Neg (Neg); Blood, Urine 5+ (Neg); Glucose Qualitative, Urine Neg (Neg); Ketones, Urine Neg (Neg); Leukocyte Esterase, Urine 1+ (Neg); Nitrite, Urine Neg (Neg); Protein, Urine 3+ (Neg); Specific Gravity, Urine 1.025 (1.003-1.022); Urobilinogen, Urine NORM (Normal)
[2021-12-29 02:47] LABS: Appearance, Urine Cloudy (Clear); Color, Urine Brown (P-Yellow)
[2021-12-29 02:48] LABS: Bacteria Few /hpf; Red Blood Cells, Urine TNTC /hpf (0-2); Squamous Epithelial Cells Few /hpf (Few); White Blood Cells, Urine 0-2 /hpf (0-5)
[2021-12-29] MEDS ORDERED: TAMS.4ER PO (02:57)
[2021-12-29] MEDS ORDERED: HYDR1TAB94 PO (02:57)
[2021-12-29] MEDS ORDERED: ONDA4ODT MM (02:57)
[2021-12-30] MEDS ORDERED: PRED20 PO (06:40)
== END 2021-12-29 03:08 | disposition home or self-care (01) ==
LOC: ER 00:46
PROVIDERS: Student in an Organized Health Care Education/Training Program
DX: N13.2 Hydronephrosis with renal and ureteral calculous obstruction (principal); I25.10 Atherosclerotic heart disease of native coronary artery without angina pectoris; E66.9 Obesity, unspecified; I10 Essential (primary) hypertension; Z68.42 Body mass index [BMI] 45.0-49.9, adult; Z87.891 Personal history of nicotine dependence; Z79.899 Other long term (current) drug therapy
CPT/HCPCS: 36415; 74176; 80053; 81001; 85025; J1885; J2405; J3010; J7030

== ENCOUNTER 2021-12-30 04:15 | Emergency (ER) | payer OTHER ==
[~2021-12-30] VITALS: Ht 177.8 cm; Wt 151.1 kg
[~2021-12-30 04:15] MED LIST changes: +HYDR1TAB94 PO
[2021-12-30] MEDS ORDERED: PRED20 PO (06:40)
== END 2021-12-30 07:19 | disposition home or self-care (01) ==
LOC: ER 04:15
DX: R22.0 Localized swelling, mass and lump, head (principal); T50.905A Adverse effect of unspecified drugs, medicaments and biological substances, initial encounter; I25.10 Atherosclerotic heart disease of native coronary artery without angina pectoris; E66.9 Obesity, unspecified; I10 Essential (primary) hypertension; Z68.42 Body mass index [BMI] 45.0-49.9, adult; Z87.891 Personal history of nicotine dependence; Z79.899 Other long term (current) drug therapy
CPT/HCPCS: J1170; J1200; J1885; J7512

== ENCOUNTER 2021-12-31 00:13 | Emergency (ER) | payer OTHER ==
[~2021-12-31] VITALS: Ht 177.8 cm; Wt 149.7 kg
[~2021-12-31 00:13] MED LIST changes: +PRED20 PO
== END 2021-12-31 06:02 | disposition home or self-care (01) ==
LOC: ER 00:13
DX: N23 Unspecified renal colic (principal); I10 Essential (primary) hypertension; E66.9 Obesity, unspecified; Z79.899 Other long term (current) drug therapy; Z79.84 Long term (current) use of oral hypoglycemic drugs; Z87.891 Personal history of nicotine dependence; Z79.52 Long term (current) use of systemic steroids
CPT/HCPCS: J1170; J1885

== ENCOUNTER 2022-01-01 02:00 | Emergency (ER) | payer OTHER ==
[~2022-01-01] VITALS: Ht 177.8 cm; Wt 149.7 kg
[2022-01-02] MEDS ORDERED: CIPR500 PO (19:54)
[2022-01-02] MEDS ORDERED: PROBIOTIC1 EA13 PO (19:54)
[2022-01-02] MEDS ORDERED: METR500 PO (19:54)
== END 2022-01-01 04:22 | disposition home or self-care (01) ==
LOC: ER 02:00
DX: N23 Unspecified renal colic (principal); E66.9 Obesity, unspecified; I10 Essential (primary) hypertension; Z88.0 Allergy status to penicillin; Z79.899 Other long term (current) drug therapy; Z79.52 Long term (current) use of systemic steroids
CPT/HCPCS: A9270; J1885

== ENCOUNTER 2022-01-02 17:17 | Emergency (ER) | payer OTHER ==
[~2022-01-02] VITALS: Ht 177.8 cm; Wt 149.7 kg
[2022-01-02 17:51] LABS: BASOPHILS ABSOLUTE AUTO 0.02 K/mm3 (0.00-0.23); BASOPHILS PERCENT AUTO 0 % (0-2); EOSINOPHILS ABSOLUTE AUTO 0.12 K/mm3 (0.00-0.68); EOSINOPHILS PERCENT AUTO 1 % (0-6); Hematocrit 45.1 % (37.0-53.0); Hemoglobin 14.5 g/dL (13.5-17.5); IMMATURE GRAN ABSOLUTE AUTO 0.03 K/mm3 (0.00-0.10); IMMATURE GRAN PERCENT AUTO 0 % (0-1); LYMPHOCYTES ABSOLUTE AUTO 1.17 K/mm3 (0.84-5.20); LYMPHOCYTES PERCENT AUTO 14 % (21-46); MONOCYTES ABSOLUTE AUTO 0.75 K/mm3 (0.16-1.47); MONOCYTES PERCENT AUTO 9 % (4-13); Mean Corpuscular HGB 25.1 pg (26.0-34.0); Mean Corpuscular HGB Conc 32.2 g/dL (31.5-36.5); Mean Corpuscular Volume 78 fL (80-100); NEUTROPHILS ABSOLUTE AUTO 6.58 K/mm3 (1.96-9.15); NEUTROPHILS PERCENT AUTO 76 % (41-73); Platelet Count 221 K/mm3 (150-400); RDW Coefficient Variation 15.1 % (11.7-14.2); RDW Standard Deviation 42.6 fL (35.1-46.3); Red Blood Cell Count 5.78 M/mm3 (4.30-5.90); White Blood Cell Count 8.67 K/mm3 (4.00-11.30)
[2022-01-02 17:58] LABS: Source, Urine Clean Catch
[2022-01-02 18:09] LABS: Appearance, Urine Clear (Clear); Bilirubin, Urine Neg (Neg); Blood, Urine 2+ (Neg); Color, Urine Yellow (P-Yellow); Glucose Qualitative, Urine Neg (Neg); Ketones, Urine Neg (Neg); Leukocyte Esterase, Urine Neg (Neg); Nitrite, Urine Neg (Neg); Protein, Urine 2+ (Neg); Specific Gravity, Urine 1.015 (1.003-1.022); Urobilinogen, Urine NORM (Normal)
[2022-01-02 18:10] LABS: Albumin, Blood 3.2 g/dL (3.4-5.0); Albumin/Globulin Ratio 0.8 (0.8-1.8); Bilirubin, Total 0.6 mg/dL (0.1-1.0); Bun/Creatinine Ratio 17.9 (12.0-20.0); Calcium, Blood 9.5 mg/dL (8.5-10.1); Creatinine, Blood 0.95 mg/dL (0.60-1.20); Globulin, Blood 3.8 g/dL (2.2-4.0); Potassium, Blood 4.1 mmol/L (3.5-5.5)
[2022-01-02 18:17] LABS: Bacteria Rare /hpf; Red Blood Cells, Urine 0-2 /hpf (0-2); Squamous Epithelial Cells Rare /hpf (Few)
[2022-01-02] MEDS ORDERED: METR500 PO (19:54)
[2022-01-02] MEDS ORDERED: CIPR500 PO (19:54)
[2022-01-02] MEDS ORDERED: PROBIOTIC1 EA13 PO (19:54)
== END 2022-01-02 20:21 | disposition home or self-care (01) ==
LOC: ER 17:17
PROVIDERS: Physician Assistant
DX: K52.89 Other specified noninfective gastroenteritis and colitis (principal); I25.10 Atherosclerotic heart disease of native coronary artery without angina pectoris; I10 Essential (primary) hypertension; E66.9 Obesity, unspecified; Z88.0 Allergy status to penicillin; Z79.899 Other long term (current) drug therapy; Z68.42 Body mass index [BMI] 45.0-49.9, adult
CPT/HCPCS: 36415; 74177; 80053; 81001; 83690; 85025; A9270; J2405; J3010; Q9967

== ENCOUNTER 2022-03-03 13:18 | Emergency (ER) | payer OTHER ==
[~2022-03-03] VITALS: Ht 177.8 cm; Wt 154.2 kg
[~2022-03-03 13:18] MED LIST changes: +CIPR500 PO; +METR500 PO; +PROBIOTIC1 EA13 PO
[2022-03-03 14:00] LABS: BASOPHILS ABSOLUTE AUTO 0.06 K/mm3 (0.00-0.23); BASOPHILS PERCENT AUTO 0 % (0-2); EOSINOPHILS ABSOLUTE AUTO 0.16 K/mm3 (0.00-0.68); EOSINOPHILS PERCENT AUTO 1 % (0-6); Hemoglobin 15.7 g/dL (13.5-17.5); IMMATURE GRAN ABSOLUTE AUTO 0.04 K/mm3 (0.00-0.10); IMMATURE GRAN PERCENT AUTO 0 % (0-1); LYMPHOCYTES ABSOLUTE AUTO 1.56 K/mm3 (0.84-5.20); LYMPHOCYTES PERCENT AUTO 11 % (21-46); MONOCYTES ABSOLUTE AUTO 1.09 K/mm3 (0.16-1.47); MONOCYTES PERCENT AUTO 8 % (4-13); Mean Corpuscular HGB 25.6 pg (26.0-34.0); Mean Corpuscular HGB Conc 32.7 g/dL (31.5-36.5); Mean Corpuscular Volume 78 fL (80-100); Mean Platelet Volume 9.3 fL (9.1-12.4); NEUTROPHILS ABSOLUTE AUTO 11.18 K/mm3 (1.96-9.15); NEUTROPHILS PERCENT AUTO 79 % (41-73); Platelet Count 227 K/mm3 (150-400); RDW Coefficient Variation 15.8 % (11.7-14.2); RDW Standard Deviation 42.7 fL (35.1-46.3); Red Blood Cell Count 6.13 M/mm3 (4.30-5.90); White Blood Cell Count 14.09 K/mm3 (4.00-11.30)
[2022-03-03 14:12] LABS: Albumin, Blood 3.5 g/dL (3.4-5.0); Albumin/Globulin Ratio 0.9 (0.8-1.8); Bilirubin, Total 1.2 mg/dL (0.1-1.0); Bun/Creatinine Ratio 17.8 (12.0-20.0); Calcium, Blood 8.9 mg/dL (8.5-10.1); Creatinine, Blood 0.84 mg/dL (0.60-1.20); Globulin, Blood 3.7 g/dL (2.2-4.0); Potassium, Blood 3.9 mmol/L (3.5-5.5); Total Protein, Blood 7.2 g/dL (6.4-8.2)
[2022-03-03 15:15] LABS: Source, Urine Voided
[2022-03-03 15:22] LABS: Appearance, Urine Clear (Clear); Bilirubin, Urine Neg (Neg); Blood, Urine Neg (Neg); Color, Urine Yellow (P-Yellow); Glucose Qualitative, Urine Neg (Neg); Ketones, Urine Neg (Neg); Leukocyte Esterase, Urine Neg (Neg); Nitrite, Urine Neg (Neg); Protein, Urine 2+ (Neg); Urobilinogen, Urine NORM (Normal)
[2022-03-03 16:28] LABS: Bacteria Few /hpf; Red Blood Cells, Urine 0-2 /hpf (0-2); Squamous Epithelial Cells Rare /hpf (Few); White Blood Cells, Urine 0-2 /hpf (0-5)
[2022-03-03] MEDS ORDERED: Cipro500 MG PO (16:49)
[2022-03-03] MEDS ORDERED: ONDA4ODT MM (16:50)
[2022-03-03] MEDS ORDERED: Flagyl500 MG PO (16:50)
[2022-03-03] MEDS ORDERED: Norco 5-325 Ta1 EACH PO (16:50)
== END 2022-03-03 17:53 | disposition home or self-care (01) ==
LOC: ER 13:18
PROVIDERS: Emergency Medicine; Physician Assistant
DX: K57.32 Diverticulitis of large intestine without perforation or abscess without bleeding (principal); I10 Essential (primary) hypertension; I25.10 Atherosclerotic heart disease of native coronary artery without angina pectoris; E66.9 Obesity, unspecified; Z68.42 Body mass index [BMI] 45.0-49.9, adult; Z88.0 Allergy status to penicillin; Z79.899 Other long term (current) drug therapy
CPT/HCPCS: 36415; 74177; 80053; 81001; 85025; A9270; J1885; J2270; J2405; Q9967

== ENCOUNTER 2022-03-04 04:42 | Emergency (ER) | payer OTHER ==
[~2022-03-04] VITALS: Ht 177.8 cm; Wt 154.2 kg
[~2022-03-04 04:42] MED LIST changes: +Flagyl500 MG PO
== END 2022-03-04 06:45 | disposition home or self-care (01) ==
LOC: ER 04:42
DX: K57.32 Diverticulitis of large intestine without perforation or abscess without bleeding (principal); I25.10 Atherosclerotic heart disease of native coronary artery without angina pectoris; I10 Essential (primary) hypertension; E66.9 Obesity, unspecified; Z68.42 Body mass index [BMI] 45.0-49.9, adult
CPT/HCPCS: A9270; J1170

== ENCOUNTER → 2023-01-02 | Outpatient (CLI) | payer OTHER ==
[~2023-01-02] MED LIST changes: +OMEP20ER PO; +SUCR1 PO
[2023-01-02 16:05] LABS: BASOPHILS ABSOLUTE AUTO 0.02 K/mm3 (0.00-0.23); BASOPHILS PERCENT AUTO 0 % (0-2); EOSINOPHILS ABSOLUTE AUTO 0.03 K/mm3 (0.00-0.68); EOSINOPHILS PERCENT AUTO 0 % (0-6); Hematocrit 51.6 % (37.0-53.0); Hemoglobin 17.5 g/dL (13.5-17.5); IMMATURE GRAN ABSOLUTE AUTO 0.08 K/mm3 (0.00-0.10); IMMATURE GRAN PERCENT AUTO 0 % (0-1); LYMPHOCYTES PERCENT AUTO 4 % (21-46); MONOCYTES ABSOLUTE AUTO 1.16 K/mm3 (0.16-1.47); MONOCYTES PERCENT AUTO 6 % (4-13); Mean Corpuscular HGB 27.9 pg (26.0-34.0); Mean Corpuscular HGB Conc 33.9 g/dL (31.5-36.5); Mean Corpuscular Volume 82 fL (80-100); Mean Platelet Volume 9.3 fL (9.1-12.4); NEUTROPHILS ABSOLUTE AUTO 18.43 K/mm3 (1.96-9.15); NEUTROPHILS PERCENT AUTO 90 % (41-73); Platelet Count 265 K/mm3 (150-400); RDW Coefficient Variation 14.5 % (11.7-14.2); RDW Standard Deviation 41.2 fL (35.1-46.3); Red Blood Cell Count 6.28 M/mm3 (4.30-5.90); White Blood Cell Count 20.52 K/mm3 (4.00-11.30)
[2023-01-02 16:13] LABS: Albumin, Blood 3.7 g/dL (3.4-5.0); Bilirubin, Total 0.5 mg/dL (0.1-1.0); Bun/Creatinine Ratio 20.4 (12.0-20.0); Calcium, Blood 9.6 mg/dL (8.5-10.1); Creatinine, Blood 1.08 mg/dL (0.60-1.20); Globulin, Blood 3.7 g/dL (2.2-4.0); Potassium, Blood 3.6 mmol/L (3.5-5.5); Total Protein, Blood 7.4 g/dL (6.4-8.2)
== END ==
LOC: LAB 15:59 → LAB SHORT 15:59
PROVIDERS: Family Medicine
DX: R06.00 Dyspnea, unspecified (principal)
CPT/HCPCS: 80053; 83880; 84484; 85025; 85379

== ENCOUNTER 2023-08-03 17:08 | Emergency (ER) | payer OTHER ==
[~2023-08-03] VITALS: Ht 177.8 cm; Wt 142.0 kg
[~2023-08-03 17:08] MED LIST changes: +Adipex-P37.5 M1 PO; -Adipex-P37.5 MG PO; +RYBELSUS7 MG PO
[2023-08-03 17:46] VITALS: BP 189/107
[2023-08-03] MEDS ORDERED: Ondansetron 4 MG SoluTab SL ONE (18:00)
[2023-08-03] MEDS ORDERED: Ketorolac Tromethamine 30mg Vial IM ONE (18:00)
[2023-08-03] MEDS ORDERED: OxyCODONE 7.5 mg/Acetam 325 mg TABLET PO ONE (19:15)
== END 2023-08-03 19:47 | disposition home or self-care (01) ==
LOC: ER 17:08
DX: G89.18 Other acute postprocedural pain (principal); M79.89 Other specified soft tissue disorders; M25.562 Pain in left knee; Z79.899 Other long term (current) drug therapy; I10 Essential (primary) hypertension; Z87.891 Personal history of nicotine dependence
CPT/HCPCS: 93971; 96372; 99283-25; A9270; J1885

== ENCOUNTER 2023-09-18 06:02 | Day surgery (SDC) | payer OTHER ==
[~2023-09-18] VITALS: Ht 175 cm; Wt 150.7 kg
[2023-09-18] MEDS ORDERED: CeFAZolin Sodium 3,000 MG in NS 100 ML IV SCH (06:35)
[2023-09-18] MEDS ORDERED: Lactated Ringer's 1,000 ML IV SCH (06:35)
[2023-09-18] MEDS ORDERED: Percocet 5-3251 EACH PO (06:48)
[2023-09-18] MEDS ORDERED: ZOLP10 PO (06:49)
[2023-09-18] MEDS ORDERED: STEGLATRO15 MG PO (06:49)
[2023-09-18] MEDS ORDERED: CELE200 PO (06:49)
[2023-09-18] MEDS ORDERED: Ondansetron Odt8 MG MM (06:50)
[2023-09-18] MEDS ORDERED: LOW DOSE ASPIRI81 M1 PO (06:51)
[2023-09-18 07:04] VITALS: BP 169/119
[2023-09-18 07:06] VITALS: BP 171/117
[2023-09-18 07:20] VITALS: BP 184/106
[2023-09-18] MEDS ORDERED: propofoL 20 ML IV ONE ×2 (07:28)
[2023-09-18] MEDS ORDERED: FentaNYL Citrate 50 MCG/ML 2 ML Injection ONE (07:28)
[2023-09-18] MEDS ORDERED: Lidocaine HCl 2% 20 ML MDV ONE (07:29)
--- NOTE | 2023-09-18 07:37 | NUR ---
History, Chart, Medications and Allergies reviewed before start of procedure. Pre-Op teaching done. Pt verbalizes understanding. Patient States Post-Procedure ride home has been arranged.
--- NOTE | 2023-09-18 07:37 | NUR ---
PT REPORTS NOT TAKING ANY HOME MEDICATIONS, BESIDES PERCOCET, FOR OVER A WEEK IN ANTICIPATION OF TODAY'S MANIPULATION UNDER ANESTHESIA. PT HYPERTENSIVE IN SDS; BOTH PHYSICIANS NOTIFIED, OKAY TO PROCEED.
--- NOTE | 2023-09-18 07:54 | NUR ---
09/18/23 0754 Sobia Gramajo PATIENT CASE 1 MINUTE, DR. HOOPER MANIPULATED LEFT KNEE. PATIENT TOLERATED PROCEDURE WELL AND BACK TO DAY SURGERY.
[2023-09-18 07:56] VITALS: BP 156/97
[2023-09-18] MEDS ORDERED: OxyCODONE 5 mg/Acetamin 325 mg TABLET PO PRN (08:05)
[2023-09-18 08:07] VITALS: BP 143/99
--- NOTE | 2023-09-18 08:24 | NUR ---
PT TO RADIOLOGY FOR XRAY, PAIN PILL GIVEN PER ORDER, PT TOLERATING FLUIDS AND SANDWICH WELL.
[2023-09-18 08:47] VITALS: BP 156/91
--- NOTE | 2023-09-18 09:00 | NUR ---
AMUBLATING W/WALKER. STABLE ON FEET. D/C TO HOME VIA W/C W/DAUGHTER. D/C INSTRUCTIONS GIVEN VERBALLY W/ PT UNDERSTANDING. WRITTEN COPIES GIVEN WELL.
== END 2023-09-18 09:00 | disposition home or self-care (01) ==
LOC: ORSCMMR 06:02 → ORD 07:30 → ORSCMMR 07:30
PROVIDERS: Orthopaedic Surgery
PROC: 0SSDXZZ Reposition Left Knee Joint, External Approach (ICD-10-PCS; principal; 2023-09-18 07:30)
DX: M24.662 Ankylosis, left knee (principal); Z96.652 Presence of left artificial knee joint; G47.33 Obstructive sleep apnea (adult) (pediatric); I10 Essential (primary) hypertension; E11.9 Type 2 diabetes mellitus without complications; Z79.82 Long term (current) use of aspirin; Z79.899 Other long term (current) drug therapy
CPT/HCPCS: 73560-LT; 82947; A9270; J0690; J2704; J3010; J7120

== ENCOUNTER 2023-11-13 07:56 | Day surgery (SDC) | payer OTHER ==
[2023-11-13] VITALS (16 sets, daily range): BP systolic 77–135; BP diastolic 43–80
[~2023-11-13] VITALS: Ht 180.3 cm; Wt 148.2 kg
[~2023-11-13 07:56] MED LIST changes: +Acetaminophen 500 MG Tab PO SCH; +CELE200 PO; +CeFAZolin Sodium 3,000 MG in NS 100 ML IV SCH; +Chlorhexidine Mouth Care 15 ML UDC MT SCH; +LOW DOSE ASPIRI81 M1 PO; +Lactated Ringer's 1,000 ML IV SCH; +Ondansetron Odt8 MG MM; +OxyCODONE HCL 10 MG TABCR PO SCH; +Ropivacaine 0.5% HCl/Pf 123.125 MG,EPINEPHrine HCL 0.25 MG,Ketorolac Tromethamine 15 MG... INFIL SCH; +STEGLATRO15 MG PO; +Tranexamic Acid 100 ML IV SCH; +ZOLP10 PO
[2023-11-13] MEDS ORDERED: FentaNYL Citrate 50 MCG/ML 2 ML Injection ONE (08:03)
[2023-11-13] MEDS ORDERED: propofoL 40 ML IV ONE (08:03)
[2023-11-13] MEDS ORDERED: Ondansetron 8 MG SoluTab MM PRN (08:45)
[2023-11-13] MEDS ORDERED: Bisacodyl 10 MG Supp PR PRN (08:50)
[2023-11-13] MEDS ORDERED: DiphenhydrAMINE HCL 25 MG Cap PO PRN (08:55)
[2023-11-13] MEDS ORDERED: Promethazine HCl 25 MG Tab PO PRN (08:55)
[2023-11-13] MEDS ORDERED: HYDROmorphone HCl/Pf 1MG SYR IV PRN (08:55)
[2023-11-13] MEDS ORDERED: FLU VACC TS2024-25(6MOS UP)/PF 45 MCG/0.5 ML SYRINGE IM ONE (08:55)
[2023-11-13] MEDS ORDERED: OxyCODONE HCL 5 MG TAB PO PRN ×2 (09:00→09:05)
[2023-11-13] MEDS ORDERED: Metoclopramide HCl 5MG / ML 2ML Vial IV PRN (09:00)
[2023-11-13] MEDS ORDERED: Magnesium Hydroxide Conc 10 ML UDC PO PRN (09:00)
[2023-11-13] MEDS ORDERED: Gabapentin 300 MG Cap PO SCH (09:00)
[2023-11-13] MEDS ORDERED: Ondansetron HCl 2 MG / ML 2ML Vial IV PRN (09:00)
[2023-11-13] MEDS ORDERED: HydroCHLOROthiazide 25 mg Tab PO SCH (09:00)
[2023-11-13] MEDS ORDERED: Docusate Sodium 100 MG Cap PO SCH (09:00)
[2023-11-13] MEDS ORDERED: AmLODIPine Besylate 5 MG Tab PO SCH (09:00)
[2023-11-13] MEDS ORDERED: Lisinopril 20 MG Tab PO SCH (09:00)
[2023-11-13] MEDS ORDERED: Lactated Ringer's 1,000 ML IV SCH (09:00)
[2023-11-13] MEDS ORDERED: Atorvastatin 40 MG Tab PO SCH (09:00)
[2023-11-13] MEDS ORDERED: Tamsulosin HCl 0.4 MG Cap PO SCH (09:00)
[2023-11-13] MEDS ORDERED: Ferrous Sulfate 325 MG Tab PO SCH (09:00)
--- NOTE | 2023-11-13 09:28 | NUR ---
PT TO SDS VIA WC. PT ABLE TO STAND FOR HEIGHT/WEIGHT, PT STATES WC IS FOR LONGER DISTANCES. History, Chart, Medications and Allergies reviewed before start of procedure. Lungs clear T/O to Auscultation. Patient confirms NPO status and agrees with scheduled surgery. Pre-Op teaching done. Pt verbalizes understanding. PT BELONGINGS PLACED UNDERNEATH GURNEY FOR SAFEKEEPING. PT WALKER, DENTURES AND GLASSES TAKEN TO PACU FOR SAFEKEEPING.
[2023-11-13] MEDS ORDERED: propofoL 20 ML IV ONE ×2 (10:09→10:36)
[2023-11-13] MEDS ORDERED: Insulin Regular 100 UNIT/ML 10ML Vial SC SCH (11:30)
[2023-11-13] MEDS ORDERED: Ketorolac Tromethamine 30mg Vial ONE (11:56)
[2023-11-13] MEDS ORDERED: Ketorolac Tromethamine 15mg Vial IV SCH (12:00)
--- NOTE | 2023-11-13 14:07 | NUR ---
Pt. is awake in bed when he welcomes my visit. Pt. is pleasant but verbalizes he heals some of his anesthesia is waering off. Facilitate life review and establish a measure of rapport. Pt. displays evidence of interest and engagement in the visit. Listen with empathy and interest. Prayed with Pt. Pt. 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
[2023-11-13] MEDS ORDERED: Acetaminophen 500 MG Tab PO SCH (16:00)
[2023-11-13] MEDS ORDERED: CeFAZolin Sodium 3,000 MG in NS 100 ML IV SCH (18:00)
--- NOTE | 2023-11-13 18:34 | NUR ---
SHIFT SUMMARY S/P RTKA PT UNABLE TO WORK WITH THERAPY WELL THIS AFTERNOON. FEET REMAIN NUMB, ABLE TO STAND AND VOID WELL BUT CANNOT TAKE STEPS. TOLERATING DIET WELL SLIGHT NAUSEA AT TIMES. TOLERABLE WITH MEDICATION. REPORTS HIGH PAIN LEVELS BUT IS ABLE TO MOVE AND REPOSITION SELF IN BED WELL. PLAN IS FOR PATIENT TO WORK WITH THERAPY TOMORROW AND DISCHARGE HOME.
[2023-11-13] MEDS ORDERED: Zolpidem Tartrate 10 MG Tab PO SCH (21:00)
[2023-11-14 00:11] VITALS: BP 114/65
[2023-11-14 04:37] VITALS: BP 131/82
[2023-11-14 05:06] LABS: BASOPHILS ABSOLUTE AUTO 0.05 K/mm3 (0.00-0.23); BASOPHILS PERCENT AUTO 0 % (0-2); EOSINOPHILS ABSOLUTE AUTO 0.18 K/mm3 (0.00-0.68); EOSINOPHILS PERCENT AUTO 1 % (0-6); Hematocrit 46.3 % (37.0-53.0); Hemoglobin 15.1 g/dL (13.5-17.5); IMMATURE GRAN ABSOLUTE AUTO 0.03 K/mm3 (0.00-0.10); IMMATURE GRAN PERCENT AUTO 0 % (0-1); LYMPHOCYTES ABSOLUTE AUTO 1.79 K/mm3 (0.84-5.20); LYMPHOCYTES PERCENT AUTO 14 % (21-46); MONOCYTES ABSOLUTE AUTO 1.23 K/mm3 (0.16-1.47); MONOCYTES PERCENT AUTO 10 % (4-13); Mean Corpuscular HGB 26.7 pg (26.0-34.0); Mean Corpuscular HGB Conc 32.6 g/dL (31.5-36.5); Mean Corpuscular Volume 82 fL (80-100); Mean Platelet Volume 9.4 fL (9.1-12.4); NEUTROPHILS ABSOLUTE AUTO 9.47 K/mm3 (1.96-9.15); NEUTROPHILS PERCENT AUTO 74 % (41-73); Platelet Count 214 K/mm3 (150-400); RDW Coefficient Variation 15.6 % (11.7-14.2); RDW Standard Deviation 46.5 fL (35.1-46.3); Red Blood Cell Count 5.65 M/mm3 (4.30-5.90); White Blood Cell Count 12.75 K/mm3 (4.00-11.30)
[2023-11-14 05:33] LABS: Bun/Creatinine Ratio 18.9 (12.0-20.0); Calcium, Blood 8.9 mg/dL (8.5-10.1); Creatinine, Blood 0.95 mg/dL (0.60-1.20); Potassium, Blood 3.9 mmol/L (3.5-5.5)
--- NOTE | 2023-11-14 05:48 | NUR ---
SHIFT SUMMARY POD 1 R TKA PT RESTLESS T/O NIGHT. PAIN MANAGED PER APR. TOLERATING PO INTAKE, VOIDING. PT HAD 1 BOUT OF EMESIS THIS AM. PT HAVING NUMBNESS IN R FOOT, ABLE TO WIGGLE TOES AND CAN FEEL TOUCH. PT HAS NOT BEEN OOB BECAUSE OF NUMBNESS. VSS. PLAN TO WORK WITH THERAPY THEN D/C HOME. NO OTHER CONCERNS AT THIS TIMME, CALL LIGHT WITHIN REACH
[2023-11-14 07:10] VITALS: BP 117/59
[2023-11-14] MEDS ORDERED: Aspirin 81 MG Chew PO SCH (08:00)
[2023-11-14] MEDS ORDERED: ERTUGLIFLOZIN 15 MG PO SCH (09:00)
--- NOTE | 2023-11-14 14:53 | NUR ---
Pt. is sitting up in a recliner chair when he welcomed my visit. Pt. is pleasant but is fighting the affects of his medication. As we considered matters of nikunj and belief, the Pt. perked up and a much more detailed life review is facilitated. Pt. displayed evidence of trust and respect. Prayed with the Pt. Pt. verbalized gratitude for the lengthy spiritual care visit.
[2023-11-14 15:39] VITALS: BP 106/65
--- NOTE | 2023-11-14 18:44 | NUR ---
SHIFT SUMMARY POD 2 RTKA. PT WAS NOT ABLE TO WORK WITH PT THIS AFTERNOON. AMBULATED FROM CHAIR TO DOOR AND BACK. PT STATES THAT R FOOT/KNEE FEEL WEAK WHEN WALKING. PAIN MANAGED PER EMAR. EATING/DRINKING/VOIDING. INCISION COVERED WITH MATT BANDAGE, C/D/I. BED IN LOWEST POSITION, CALL LIGHT WITHIN REACH.
[2023-11-14 20:10] VITALS: BP 133/74
[2023-11-14 20:11] VITALS: BP 133/74
[2023-11-15 04:12] VITALS: BP 134/87
--- NOTE | 2023-11-15 06:51 | NUR ---
SHIFT SUMMARY PT A&O X4, VSS. AFEBRILE, REMAINS ON RA. NO ACUTE EVENTS. PT TOLERATING PO INTAKE, DENIES N/V. PT VOIDING, USING URINAL AT BEDSIDE. PT STILL NOT AMBULATING. PT REPORTS PAIN WITH WEIGHT, WELL NOT "BEING ABLE TO LIFT R LEG". PT ABLE TO SIT UP AT EOB INDEPENDENTLY, BUT ASKING FOR HELP TO GET HIS R LEG BACK INTO BED. EDUCATION PROVIDED, MOVEMENT AND AMBULATION ENCOURAGED. MATT DRESSING IN PLACE; C/D/I. PT REPORTS PAIN 6- 10/10; REST AND MEDICATION PER EMAR. MEDICATION BRINGING PAIN DOWN MINIMALLY PER PT REPORT. DENIES NUMBNESS OR TINGLING IN R KNEE/LEG. WILL UPDATE ONCOMING RN. CALL LIGHT IN REACH, ABLE TO MAKE NEEDS KNOWN.
[2023-11-15 07:43] VITALS: BP 135/78
--- NOTE | 2023-11-15 10:34 | NUR ---
DISCHARGE NOTE POD 1 LTHA. INCISION C/D/I. VSS. DENIES N/T. PAIN MANAGED PER EMAR. EATING/DRINKING/VOIDING WITHOUT DIFFICULTY. WORKED WITH PT/OT THIS MORNING. REVIEWED DISCHARGE INSTRUCTIONS WITH PT AND . VERBALIZED UNDERSTANDING. WHEELED OUT TO WIFES CAR VIA WHEELCHAIR.
[2023-11-15] MEDS ORDERED: PERCOCET 10-321 EA13 PO (11:05)
--- NOTE | 2023-11-15 13:10 | NUR ---
DISCHARGE NOTE POD 2 RTKA. PT WORKED WITH PT THIS MORNING. EATING/DRINKING/VOIDING WITHOUT ISSUES. DENIES N/T BILATERALLY. PPP. VSS. PAIN MANAGED PER EMAR. INCISION SITE C/D/I. VERBALIZED UNDERSTANDING OF DISCHARGE INSTRUCTIONS. WHEELED OUT TO DAUGHTERS CAR VIA WHEELCHAIR.
[2023-11-16] MEDS ORDERED: Empagliflozin 25 MG TAB PO SCH (09:00)
== END 2023-11-15 12:56 | disposition home or self-care (01) ==
LOC: ORSCMMR 07:56 → ORD 09:15 → ORSCMMR 09:15 → ORD 12:30 → SURS 12:31 → ORSCMMR 11-15 12:56
PROVIDERS: Orthopaedic Surgery
PROC: 0SRC0JA Replacement of Right Knee Joint with Synthetic Substitute, Uncemented, Open Approach (ICD-10-PCS; principal; 2023-11-13 09:15)
DX: M17.11 Unilateral primary osteoarthritis, right knee (principal); Z96.652 Presence of left artificial knee joint; I10 Essential (primary) hypertension; G47.33 Obstructive sleep apnea (adult) (pediatric); R73.03 Prediabetes; Z79.899 Other long term (current) drug therapy; Z79.82 Long term (current) use of aspirin; E66.01 Morbid (severe) obesity due to excess calories; Z68.42 Body mass index [BMI] 45.0-49.9, adult
CPT/HCPCS: 36415; 73560-RT; 80048; 82947; 85025; 97110; 97116; 97162; 97530; A9270; C1776; J0171; J0690; J0735; J1170; J1885; J2405; J2704; J2765; J2795; J3010; J7120

== ENCOUNTER 2023-11-17 04:50 | Observation (INO) | payer OTHER ==
[~2023-11-17] VITALS: Ht 180.3 cm; Wt 154.7 kg
[~2023-11-17 04:50] MED LIST changes: -Acetaminophen 500 MG Tab PO SCH; -CeFAZolin Sodium 3,000 MG in NS 100 ML IV SCH; -Chlorhexidine Mouth Care 15 ML UDC MT SCH; -Lactated Ringer's 1,000 ML IV SCH; -OxyCODONE HCL 10 MG TABCR PO SCH; +PERCOCET 10-321 EA13 PO; -Ropivacaine 0.5% HCl/Pf 123.125 MG,EPINEPHrine HCL 0.25 MG,Ketorolac Tromethamine 15 MG... INFIL SCH; -Tranexamic Acid 100 ML IV SCH
[2023-11-17] MEDS ORDERED: HYDROmorphone HCl/Pf 1MG SYR IV ONE ×3 (05:00→12:15)
[2023-11-17] MEDS ORDERED: Ondansetron HCl 2 MG / ML 2ML Vial IV ONE ×2 (05:00→10:35)
[2023-11-17 05:28] LABS: BASOPHILS ABSOLUTE AUTO 0.04 K/mm3 (0.00-0.23); BASOPHILS PERCENT AUTO 0 % (0-2); EOSINOPHILS ABSOLUTE AUTO 0.28 K/mm3 (0.00-0.68); EOSINOPHILS PERCENT AUTO 3 % (0-6); Hematocrit 40.9 % (37.0-53.0); Hemoglobin 13.3 g/dL (13.5-17.5); IMMATURE GRAN ABSOLUTE AUTO 0.04 K/mm3 (0.00-0.10); IMMATURE GRAN PERCENT AUTO 0 % (0-1); LYMPHOCYTES ABSOLUTE AUTO 1.37 K/mm3 (0.84-5.20); LYMPHOCYTES PERCENT AUTO 14 % (21-46); MONOCYTES ABSOLUTE AUTO 0.78 K/mm3 (0.16-1.47); MONOCYTES PERCENT AUTO 8 % (4-13); Mean Corpuscular HGB 26.9 pg (26.0-34.0); Mean Corpuscular HGB Conc 32.5 g/dL (31.5-36.5); Mean Corpuscular Volume 83 fL (80-100); Mean Platelet Volume 9.9 fL (9.1-12.4); NEUTROPHILS ABSOLUTE AUTO 7.54 K/mm3 (1.96-9.15); NEUTROPHILS PERCENT AUTO 75 % (41-73); Platelet Count 210 K/mm3 (150-400); RDW Coefficient Variation 15.6 % (11.7-14.2); RDW Standard Deviation 46.5 fL (35.1-46.3); Red Blood Cell Count 4.94 M/mm3 (4.30-5.90); White Blood Cell Count 10.05 K/mm3 (4.00-11.30)
[2023-11-17 05:56] LABS: Bun/Creatinine Ratio 19.6 (12.0-20.0); Calcium, Blood 8.9 mg/dL (8.5-10.1); Creatinine, Blood 0.82 mg/dL (0.60-1.20); Potassium, Blood 3.9 mmol/L (3.5-5.5)
[2023-11-17] MEDS ORDERED: OxyCODONE 5 mg/Acetamin 325 mg TABLET PO ONE (08:05)
[2023-11-17] MEDS ORDERED: OxyCODONE HCL 5 MG TAB PO ONE (10:30)
[2023-11-17] MEDS ORDERED: Aspirin 325 MG Tab PO ONE (11:50)
[2023-11-17] MEDS ORDERED: FLU VACC TS2024-25(6MOS UP)/PF 45 MCG/0.5 ML SYRINGE IM SCH (12:30)
[2023-11-17] MEDS ORDERED: Acetaminophen 325 MG TABLET PO PRN (12:30)
[2023-11-17] MEDS ORDERED: OxyCODONE HCL 5 MG TAB PO PRN (12:35)
[2023-11-17] MEDS ORDERED: Polyethylene Glycol 3350 17 gm PO SCH (13:00)
[2023-11-17 14:30] VITALS: BP 165/99
--- NOTE | 2023-11-17 14:41 | NUR ---
PT ARRIVED TO 214 FROM ED PT SCOOTED SELF FROM GURNEY TO BED WHILE RN SUPPORTED RLE. ORIENTED TO ROOM. R KNEE HAS AQUACEL DRESSING WITH SCANT AMT DRIED SANGUINEOUS DRAINAGE NOTED. RLE SLIGHTLY SLIGHTLY WARM TO TOUCH AND SLIGHTLY SWOLLEN. PT REPORTS UNABLE TO BEAR WEIGHT ON LEG. LCA. HRR. BTX4. PT REPORTED HAD BM YESTERDAY. CALL LIGHT IN REACH.
[2023-11-17] MEDS ORDERED: Ondansetron HCl 2 MG / ML 2ML Vial IV PRN (15:00)
--- NOTE | 2023-11-17 17:28 | NUR ---
SUMMARY NO ACUTE CHANGES SINCE ARRIVING TO UNIT. PT RESTING IN BED. ICE APPLIED TO R KNEE FOR COMFORT. CALL LIGHT IN REACH.
[2023-11-17] MEDS ORDERED: HYDROmorphone HCl/Pf 1MG SYR IV PRN (18:10)
[2023-11-17] MEDS ORDERED: OxyCODONE 10/Acetamin 325 TABLET PO PRN (18:20)
--- NOTE | 2023-11-17 18:47 | NUR ---
changed aquacel dressing aquacel dressing peeling at top edge, cleaned incision and placed new aquacel. placed duong to operative leg (duong hose already on non operative leg). placed clean non skid socks. call light in reach.
[2023-11-17 20:35] VITALS: BP 142/94
[2023-11-17] MEDS ORDERED: Gabapentin 300 MG Cap PO SCH (21:00)
[2023-11-17] MEDS ORDERED: Zolpidem Tartrate 10 MG Tab PO SCH (21:00)
[2023-11-18 02:14] VITALS: BP 139/80
--- NOTE | 2023-11-18 04:20 | NUR ---
SHIFT SUMMARY PT IS POST R TKA ADMITTED FOR PAIN MANAGEMENT. A/O X4, PT URINATING W/ URINAL INDEPENDENTLY. ICE APPLIED TO R KNEE. R KNEE SWOLLEN AND PAINFUL TO TOUCH. DRESSING C/D/I. CAP REFILL IN R TOES 2 SECS, PT ABLE TO WIGGLE TOES. PT STATES HE CANNOT BEAR WEIGHT ON R LEG DUE TO PAIN. MEDICATED W/ PO AND IV PAIN MEDS PER EMAR, PT ABLE TO REST INTERMITTENTLY BUT STILL COMPLAINING OF SOME PAIN. USING CALL LIGHT APPROPRIATELY, PLAN FOR SNF PLACEMENT.
[2023-11-18 04:54] LABS: Hematocrit 40.7 % (37.0-53.0); Mean Corpuscular HGB 26.5 pg (26.0-34.0); Mean Corpuscular HGB Conc 31.9 g/dL (31.5-36.5); Mean Corpuscular Volume 83 fL (80-100); Mean Platelet Volume 8.8 fL (9.1-12.4); Platelet Count 220 K/mm3 (150-400); RDW Coefficient Variation 15.6 % (11.7-14.2); RDW Standard Deviation 47.2 fL (35.1-46.3); Red Blood Cell Count 4.91 M/mm3 (4.30-5.90); White Blood Cell Count 9.03 K/mm3 (4.00-11.30)
[2023-11-18 05:05] LABS: Bun/Creatinine Ratio 19.4 (12.0-20.0); Calcium, Blood 8.6 mg/dL (8.5-10.1); Creatinine, Blood 0.77 mg/dL (0.60-1.20); Potassium, Blood 4.2 mmol/L (3.5-5.5)
[2023-11-18 07:41] VITALS: BP 133/89
[2023-11-18] MEDS ORDERED: AmLODIPine Besylate 5 MG Tab PO SCH (09:00)
[2023-11-18] MEDS ORDERED: Misc. Tablet PO SCH (09:00)
[2023-11-18] MEDS ORDERED: Aspirin 81 MG TabEC PO SCH (09:00)
[2023-11-18] MEDS ORDERED: HydroCHLOROthiazide 25 mg Tab PO SCH (09:00)
[2023-11-18] MEDS ORDERED: Enoxaparin 40 MG/0.4 ML SYR SC SCH (09:00)
[2023-11-18] MEDS ORDERED: Ferrous Sulfate 325 MG Tab PO SCH (09:00)
[2023-11-18] MEDS ORDERED: Lisinopril 20 MG Tab PO SCH (09:00)
[2023-11-18] MEDS ORDERED: Atorvastatin 40 MG Tab PO SCH (09:00)
[2023-11-18] MEDS ORDERED: Tamsulosin HCl 0.4 MG Cap PO SCH (09:00)
[2023-11-18] MEDS ORDERED: Empagliflozin 25 MG TAB PO SCH (09:00)
--- NOTE | 2023-11-18 10:06 | NUR ---
PT TO IMAGING.
--- NOTE | 2023-11-18 14:31 | NUR ---
PAIN PT RATING PAIN 10/10 BUT WHEN ASKED, STATED PAIN PILLS HELPED BUT STILL RATED 10/10. MEDICATED PER ORDERS W/IV DILAUDID. WHEN ENTERED ROOM, PT HAD R LEG BENT WITH FOOT ON FLOOR. ENCOURAGED PT AGAIN TO KEEP RLE ELEVATED. POLAR PACK IN PLACE. CALL LIGHT IN REACH.
[2023-11-18 14:37] VITALS: BP 131/72
--- NOTE | 2023-11-18 17:05 | NUR ---
SUMMARY PT WORKED WITH THERAPY AND AMBULATED IN JAMA THIS AM. SAT UP IN RECLINER FOR DAY, AMBULATING TO RESTROOM INTERMITTENTLY. PT HAS REPORTED FEELING QUITE PAIINFUL, OFTEN RATING GREATER THAN 10. MEDICATED PER ORDERS FOR PAIN, POLAR PACK PLACED TO KNEE AND ENCOURAGED PT TO ELEVATE RLE WHEN AT REST. PT ABLE TO EAT, CARRY ON CONVERSATIONS AND WATCH FOOTBALL ON TABLET WITHOUT DIFFICULTY. CALL LIGHT IN REACH.
[2023-11-18 19:53] VITALS: BP 106/58
[2023-11-19 02:07] VITALS: BP 118/80
[2023-11-19] MEDS ORDERED: Ondansetron 4 MG SoluTab SL PRN (02:15)
--- NOTE | 2023-11-19 04:52 | NUR ---
PAIN: PT DROWSY SITTING ON SOB C/O PAIN, ASKING FOR "THAT DILAUDID" PT EDUCATED ON IMPORTANCE OF ELEVATING RLE R/T SWELLING AND PAIN MGMT. PT RATES PAIN 11/10, FLACC SCALE 3. PT STATES HE WILL ELEVATE RLE AFTER HE IS MEDICATED W/IV PAIN MED. PT CONT TO NOD OFF WHILE SITTING UP ON SOB. PT MEDICATED W/0.5 MG IV DILAUDID PER CLINICAL JUDGEMENT R/T DROWSINESS.
--- NOTE | 2023-11-19 05:21 | NUR ---
SHIFT SUMMARY PT RESTED MOST OF SHIFT, AMBULATED 1 ASST W/ FWW AND GB. PT COMPLAINS OF 10/10 PAIN BUT IS LAUGHING, JOKING W/ STAFF, ABLE TO REST AND NOT WINCING OR GRIMACING. VSS. O2 SATS DROPPED TO 84% WHILE PT SLEPT, PT REFUSING CPAP, CONT BIOX ON AND 2LNC APPLIED. PAIN TREATED W/ PO AND IV PAIN MEDS, ENCOURAGING PT TO TRY PO PAIN MEDS BUT PT IS RELUCTANT TO STOP TAKING IV MEDS. DRESSING C/D/I, PT ABLE TO WIGGLE R TOES, CAP REFILL 2 SECS. PT CALLING APPROPRIATELY.
[2023-11-19 07:27] VITALS: BP 122/68
[2023-11-19] MEDS ORDERED: MIRALAX17 GM PO (11:32)
[2023-11-19 14:44] VITALS: BP 142/78
== END 2023-11-19 16:09 | disposition home health service (06) ==
LOC: ER 04:50 → SURS 12:28
PROVIDERS: Emergency Medicine; ADMIT Internal Medicine
DX: M25.561 Pain in right knee (principal); E11.40 Type 2 diabetes mellitus with diabetic neuropathy, unspecified; G47.33 Obstructive sleep apnea (adult) (pediatric); D50.9 Iron deficiency anemia, unspecified; E66.01 Morbid (severe) obesity due to excess calories; N40.0 Benign prostatic hyperplasia without lower urinary tract symptoms; I10 Essential (primary) hypertension; I25.10 Atherosclerotic heart disease of native coronary artery without angina pectoris; M17.10 Unilateral primary osteoarthritis, unspecified knee; G25.81 Restless legs syndrome; Z79.899 Other long term (current) drug therapy; Z79.82 Long term (current) use of aspirin; Z96.651 Presence of right artificial knee joint; Z95.1 Presence of aortocoronary bypass graft
CPT/HCPCS: 36415; 73564; 80048; 85025; 85027; 93971; 94762; 96372; 96374; 96375; 96376; 97110; 97116; 97161; 97530; 99285-25; A9270; G0378; J1170; J1650; J2405

== ENCOUNTER 2023-11-20 13:44 | Emergency (ER) | payer OTHER ==
[~2023-11-20] VITALS: Ht 177.8 cm; Wt 154.7 kg
[~2023-11-20 13:44] MED LIST changes: +MIRALAX17 GM PO
[2023-11-20] MEDS ORDERED: HYDROmorphone HCl/Pf 1MG SYR IM ONE (15:00)
[2023-11-20 15:50] VITALS: BP 121/55
== END 2023-11-20 16:34 | disposition home or self-care (01) ==
LOC: ER 13:44
DX: G89.18 Other acute postprocedural pain (principal); M25.561 Pain in right knee; I10 Essential (primary) hypertension; E78.00 Pure hypercholesterolemia, unspecified; F17.200 Nicotine dependence, unspecified, uncomplicated; I25.2 Old myocardial infarction
CPT/HCPCS: 96372; 99283-25; J1170; J1171

== ENCOUNTER 2024-01-16 16:27 | Emergency (ER) | payer OTHER ==
[~2024-01-16] VITALS: Ht 177.8 cm; Wt 153.3 kg
[2024-01-16 16:37] VITALS: BP 131/130
[2024-01-16 17:17] LABS: BASOPHILS ABSOLUTE AUTO 0.05 K/mm3 (0.00-0.23); BASOPHILS PERCENT AUTO 0 % (0-2); EOSINOPHILS PERCENT AUTO 1 % (0-6); Hematocrit 48.9 % (37.0-53.0); Hemoglobin 16.2 g/dL (13.5-17.5); IMMATURE GRAN ABSOLUTE AUTO 0.04 K/mm3 (0.00-0.10); IMMATURE GRAN PERCENT AUTO 0 % (0-1); LYMPHOCYTES ABSOLUTE AUTO 1.79 K/mm3 (0.84-5.20); LYMPHOCYTES PERCENT AUTO 15 % (21-46); MONOCYTES PERCENT AUTO 8 % (4-13); Mean Corpuscular HGB 27.7 pg (26.0-34.0); Mean Corpuscular HGB Conc 33.1 g/dL (31.5-36.5); Mean Corpuscular Volume 84 fL (80-100); Mean Platelet Volume 9.3 fL (9.1-12.4); NEUTROPHILS ABSOLUTE AUTO 9.11 K/mm3 (1.96-9.15); NEUTROPHILS PERCENT AUTO 76 % (41-73); Platelet Count 227 K/mm3 (150-400); RDW Coefficient Variation 14.8 % (11.7-14.2); RDW Standard Deviation 45.1 fL (35.1-46.3); Red Blood Cell Count 5.84 M/mm3 (4.30-5.90); White Blood Cell Count 11.99 K/mm3 (4.00-11.30)
[2024-01-16 17:37] LABS: Albumin, Blood 3.8 g/dL (3.4-5.0); Albumin/Globulin Ratio 0.9 (0.8-1.8); Bilirubin, Total 2.1 mg/dL (0.1-1.0); Bun/Creatinine Ratio 14.1 (12.0-20.0); Calcium, Blood 9.4 mg/dL (8.5-10.1); Creatinine, Blood 0.78 mg/dL (0.60-1.20); Globulin, Blood 4.1 g/dL (2.2-4.0); Potassium, Blood 3.5 mmol/L (3.5-5.5); Total Protein, Blood 7.9 g/dL (6.4-8.2)
== END 2024-01-16 20:15 | disposition home or self-care (01) ==
LOC: ER 16:27
PROVIDERS: Student in an Organized Health Care Education/Training Program
DX: K64.9 Unspecified hemorrhoids (principal); Z79.82 Long term (current) use of aspirin; Z79.899 Other long term (current) drug therapy
CPT/HCPCS: 80053; 85025; 99283

== ENCOUNTER → 2024-11-13 | Outpatient (CLI) | payer OTHER ==
[2024-11-13 15:46] LABS: BASOPHILS ABSOLUTE AUTO 0.09 K/mm3 (0.00-0.23); BASOPHILS PERCENT AUTO 1 % (0-2); EOSINOPHILS ABSOLUTE AUTO 0.17 K/mm3 (0.00-0.68); EOSINOPHILS PERCENT AUTO 2 % (0-6); Hematocrit 52.5 % (37.0-53.0); Hemoglobin 18.0 g/dL (13.5-17.5); IMMATURE GRAN ABSOLUTE AUTO 0.03 K/mm3 (0.00-0.10); IMMATURE GRAN PERCENT AUTO 0 % (0-1); LYMPHOCYTES ABSOLUTE AUTO 1.67 K/mm3 (0.84-5.20); LYMPHOCYTES PERCENT AUTO 19 % (21-46); MONOCYTES ABSOLUTE AUTO 0.82 K/mm3 (0.16-1.47); MONOCYTES PERCENT AUTO 9 % (4-13); Mean Corpuscular HGB Conc 34.3 g/dL (31.5-36.5); Mean Corpuscular Volume 84 fL (80-100); NEUTROPHILS ABSOLUTE AUTO 6.16 K/mm3 (1.96-9.15); NEUTROPHILS PERCENT AUTO 69 % (41-73); NRBC ABSOLUTE 0.00 K/mm3 (0.00-0.02); NRBC Auto 0.0 /100 WBC (0.0-0.2); Platelet Count 203 K/mm3 (150-400); RDW Coefficient Variation 14.7 % (11.7-14.2); RDW Standard Deviation 43.8 fL (35.1-46.3)
[2024-11-14 01:35] LABS: Creatinine, Urine Random 66.8 mg/dL (27.00-270.00); Microalb/Creat Ratio UR, Rand 191.617 mg/g (0.000-30.000); Microalbumin, Random Urine 128.0 mg/L (0.000-20.000)
[2024-11-14 02:12] LABS: Alanine Aminotransfer (ALT/SGP 37 U/L (12-78); Albumin, Blood 3.8 g/dL (3.4-5.0); Albumin/Globulin Ratio 1.0 (0.8-1.8); Anion Gap 7 mmol/L (3-11); Aspartate Aminotrans (AST/SGOT 22 U/L (12-37); Bilirubin, Total 1.3 mg/dL (0.1-1.0); Blood Urea Nitrogen 13 mg/dL (8-24); CHOL/HDL RATIO 2.0; CO2, Blood 31 mmol/L (21-32); Calcium, Blood 8.8 mg/dL (8.5-10.1); Chloride, Blood 104 mmol/L (98-108); Cholesterol 124 mg/dL (50-200); Creatinine, Blood 0.80 mg/dL (0.60-1.20); Globulin, Blood 3.7 g/dL (2.2-4.0); Glucose, Blood 130 mg/dL (70-99); HDL Cholesterol 63 mg/dL (>39); LDL/HDL RATIO 0.8; Low Density Lipoprotein Chol 48 mg/dL (0-110); Potassium, Blood 3.8 mmol/L (3.5-5.5); Sodium, Blood 138 mmol/L (136-145); Thyroid Stimulating Hormone 1.410 uIU/mL (0.360-4.800); Total Protein, Blood 7.5 g/dL (6.4-8.2); Triglycerides 66 mg/dL (30-160); Very Low Density Lipoprot Chol 13 mg/dL (6-32)
== END ==
LOC: LAB SHORT 15:04 → LAB 15:04
PROVIDERS: Family Medicine
DX: E11.9 Type 2 diabetes mellitus without complications (principal); Z79.899 Other long term (current) drug therapy
CPT/HCPCS: 80053; 80061; 82043; 82306; 82570; 84443; 85025